=== PATIENT | male | born 1965 | race Caucasian/White ===

== ENCOUNTER 2021-06-22 06:22 | Day surgery (SDC) | payer MEDICAID ==
[~2021-06-22] VITALS: Ht 167.6 cm; Wt 103.4 kg
[2021-06-22] MEDS ORDERED: MIDAZOLAM HCL 5 MG/5 ML VIAL ONE (07:42)
[2021-06-22] MEDS ORDERED: MEPERIDINE 100 MG INJ. 100 MG/ML VIAL ONE (07:42)
[2021-06-22 09:55] VITALS: BP_SYST 118
== END 2021-06-22 09:35 | disposition home or self-care (01) ==
LOC: SDS 06:22 → SMU 06:24 → SDS 09:35
PROVIDERS: ATTEND Internal Medicine Gastroenterology
DX: Z12.11 Encounter for screening for malignant neoplasm of colon (principal); D12.0 Benign neoplasm of cecum; D12.5 Benign neoplasm of sigmoid colon; D12.3 Benign neoplasm of transverse colon; D12.8 Benign neoplasm of rectum; K64.8 Other hemorrhoids; K64.4 Residual hemorrhoidal skin tags; Z79.899 Other long term (current) drug therapy; Z20.822 Contact with and (suspected) exposure to COVID-19
CPT/HCPCS: 36415; 45385; 87426; 88305; 99152; 99153; G0378; J2175; J2250; 45384